=== PATIENT | male | born 1985 | race American Indian/Alaskan Native ===

== ENCOUNTER 2017-02-06 00:03 | Emergency (ER) | payer SELFPAY ==
--- NOTE | 2017-02-06 05:49 | Emergency Department Report ---
Upper Extremity - [facility] Chief Complaint: Extremity Injury, Upper Stated Complaint: R ARM INJURY Time Seen by Provider: 02/06/17 05:41 Upper Extremity: Right Forearm (bruising after blood draw ) Occurred When: 2 Days Mechanism: Other (blood draw at [facility] ) Symptoms: Yes Bruising/Ecchymosis, No Pain with Movement, No Deformity, No Limited Range of Movement, No Numbness, No Weakness, No Swelling, No Laceration or Abrasion ED Review of Systems ROS: Stated complaint: R ARM INJURY Other details as noted in HPI Constitutional: denies: chills, fever Eyes: denies: eye pain, eye discharge, vision change ENT: denies: ear pain, throat pain Respiratory: denies: cough, shortness of breath, wheezing Cardiovascular: denies: chest pain, palpitations Endocrine: no symptoms reported Gastrointestinal: denies: abdominal pain, nausea, diarrhea Genitourinary: denies: urgency, dysuria Musculoskeletal: denies: back pain, joint swelling, arthralgia Skin: other (injection site pain and bruising right anterior forearm) Neurological: denies: headache, weakness, paresthesias Psychiatric: denies: anxiety, depression Hematological/Lymphatic: denies: easy bleeding, easy bruising ED Past Medical Hx - Past Medical History Previous Medical History?: Yes Hx Asthma: Yes - Surgical History Past Surgical History?: No - Social History Smoking Status: Current Every Day Smoker Substance Use Type: None - Medications Home Medications: Home Medications Medication Instructions Recorded Confirmed Last Taken Type Famotidine [Pepcid] 40 mg PO QHS #14 tablet 02/15/16 Unknown Rx traMADol [Ultram 50 MG tab] 50 mg PO Q6HR PRN #10 tablet 02/15/16 Unknown Rx Naproxen 500 mg PO BID PRN #20 tablet 02/06/17 Unknown Rx Upper Extremity Exam - Exam General: Vital signs noted. No distress. Alert and acting appropriately. Head and Torso: No HEENT Abnormality, No Neck Tenderness, No Chest/Lungs Abnormality, No Abdominal Tenderness, No Back Tenderness Shoulder Exam: Yes Normal Range of Motion in Shoulder, No Shoulder Tenderness, No Clavicle Tenderness, No Shoulder Deformity, No AC Joint Tenderness Arm Exam: No Arm/Humerus Tenderness, No Arm Deformity Elbow: Yes Normal Range of Motion in Elbow, No Elbow Tenderness, No Elbow Deformity Forearm: Yes Forearm Tenderness, Yes Pain with Supination, No Forearm Deformity , No Pain with Pronation Wrist: Yes Normal ROM in Wrist, No Wrist Tenderness, No Wrist Deformity, No Snuffbox Tenderness, No Pain with Axial Thumb Compression Hand: Yes Normal ROM in Digit(s), No Hand Tenderness, No Hand Deformity, No Digit Tenderness, No Digit(s) Deformity CMS Exam: Yes Normal Distal Pulses, Yes Normal Capillary Refill, Yes Normal Distal Sensation, No Broken Skin (pain irritation to veinipuncture site right ac ) ED Course Vital Signs 02/06/17 02/06/17 02/06/17 00:58 01:01 01:36 Temperature 98.7 F 98.7 F 98.7 F Pulse Rate 80 80 Respiratory 16 16 18 Rate Blood Pressure 115/70 115/70 Blood Pressure 115/70 [Right] O2 Sat by Pulse 100 100 Oximetry ED Medical Decision Making - Medical Decision Making pt is a 31 y/o aam who presents for right forearm pain and bruising after donating plasma 2 days ago there is mild ecchymosis and bruising to veinipuncture site no phlebitis no hematoma no decreased range of motion , radial palpable +2 bilat , 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 in 2 days for site check pt given strictions to return to emergency immediately if symptoms worsen, pt verbalized agreement and understanding of same. Critical care attestation.: If time is entered above; I have spent that time in minutes in the direct care of this critically ill patient, excluding procedure time. ED Disposition Clinical Impression: Contusion of right arm Qualifiers: Encounter type: initial encounter Qualified Code(s): S40.021A - Contusion of right upper arm, initial encounter Disposition: TO HOME OR SELFCARE Is pt being admited?: No Does the pt Need Aspirin: No Condition: Good Instructions: Contusion in Adults (ED) Additional Instructions: follow up with [facility] [phone] call today to setup appointment Prescriptions: Naproxen 500 mg PO BID PRN #20 tablet PRN Reason: Pain Referrals: PRIMARY CARE, [Primary Care Provider] - 3-5 Days Forms: Work/School Release Form(ED) Time of Disposition: 05:51
[2017-02-06 06:06] VITALS: BP 113/71
== END 2017-02-06 05:55 | disposition home or self-care (01) ==
LOC: ED 00:03
DX: S40.021A Contusion of right upper arm, initial encounter (principal); J45.909 Unspecified asthma, uncomplicated; F17.200 Nicotine dependence, unspecified, uncomplicated; X58.XXXA Exposure to other specified factors, initial encounter; Y93.9 Activity, unspecified; Y99.9 Unspecified external cause status; Y92.89 Other specified places as the place of occurrence of the external cause
CPT/HCPCS: 99282

== ENCOUNTER 2017-03-23 01:24 | Emergency (ER) | payer SELFPAY | END 2017-03-23 02:28 | disposition left against medical advice (07) | LOC: ED 01:24 | DX: Z53.21 Procedure and treatment not carried out due to patient leaving prior to being seen by health care provider (principal) ==

== ENCOUNTER 2017-04-07 21:41 | Emergency (ER) | payer SELFPAY ==
[2017-04-07 22:02] VITALS: BP 123/76
--- NOTE | 2017-04-07 22:22 | Emergency Department Report ---
Chief Complaint: Skin Rash Stated Complaint: POSSIBLE STD Time Seen by Provider: 04/07/17 22:08 - HPI History of Present Illness: 32-year-old -[place] male comes in for him might have an STD. Patient reports that he had bumps near the pubic hairline for 3 days. He does report to having unprotected sex denies any penile discharge. - ROS Review of Systems: Denies any penile discharge no pain. - Exam Vital Signs: Vital Signs 04/07/17 21:51 Temperature 98.4 F Pulse Rate 87 Respiratory 18 Rate Blood Pressure 123/76 O2 Sat by Pulse 97 Oximetry Physical Exam: Patient's alert and oriented 3 nontoxic no acute distress. MSE screening note: Focused history and physical exam performed. Due to findings the following was ordered: Discussed with patient that this is not an acute nonemergent issue recommend for him to follow-up with the health department for testing. ED Disposition for MSE Condition: Stable Referrals: SONIA AGUILLON MD [Primary Care Provider] - 3-5 Days
== END 2017-04-07 22:15 | disposition left against medical advice (07) ==
LOC: ED 21:41
DX: A64 Unspecified sexually transmitted disease (principal); Z53.21 Procedure and treatment not carried out due to patient leaving prior to being seen by health care provider

== ENCOUNTER 2019-06-04 22:03 | Emergency (ER) | payer SELFPAY ==
[2019-06-04 22:14] VITALS: BP 127/86
--- NOTE | 2019-06-04 22:23 | Emergency Department Report ---
Blank Doc - Documentation Documentation: 34-year-old male that presents with right groin abscess. This initial assessment/diagnostic orders/clinical plan/treatment(s) is/are subject to change based on patient's health status, clinical progression and re- assessment by fellow clinical providers in the ED. Further treatment and workup at subsequent clinical providers discretion. Patient/guardians urged not to elope from the ED as their condition may be serious if not clinically assessed and managed. Initial orders include: 1- Patient sent to [facility] for further evaluation and treatment
--- NOTE | 2019-06-05 00:33 | Emergency Department Report ---
Chief Complaint: Skin Rash Stated Complaint: GROIN RASH Time Seen by Provider: 06/04/19 22:22 - HPI History of Present Illness: Patient is a 34-year-old male who presents the emergency room with complaints of a "hair bump:" that began a week ago. He states initially it was increasing in size but he popped it and had a little small amount of drainage and has been decreasing in size since then. he states he no longer has any drainage. He states that he shaved with a razor and then noticed the bump shortly after. He denies any drainage, fever, pain, swelling, any other symptoms. He denies any past medical history. He denies any allergies to medications. 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 May clean with alcohol once a day. Do not shave until all bumps have resolved. If you do shave please use a new razor. Follow-up with a primary care doctor in the next 3 to 5 days. Return to the emergency room for any new or worsening symptoms. - Exam Vital Signs: Vital Signs 06/04/19 22:13 Temperature 98.3 F Pulse Rate 109 H Respiratory 18 Rate Blood Pressure 127/86 O2 Sat by Pulse 98 Oximetry MSE screening note: Focused history and physical exam performed. ED Disposition for MSE Clinical Impression: Folliculitis Disposition: Z- MED SCREENING EXAM-LEFT Is pt being admited?: No Does the pt Need Aspirin: No Condition: Stable Instructions: Folliculitis (ED) Additional Instructions: Please use warm compresses 2-3 times a day. May clean with alcohol once a day. Do not shave until all bumps have resolved. If you do shave please use a new razor. Follow-up with a primary care doctor in the next 3 to 5 days. Return to the emergency room for any new or worsening symptoms. Referrals: SHIRIN FRANK MD [Staff Physician] - 3-5 Days [facility] [Outside] - 3-5 Days [facility] [Outside] - 3-5 Days Time of Disposition: 00:32 Print Language: KOREAN
== END 2019-06-05 00:50 | disposition left against medical advice (07) ==
LOC: ED 22:03
DX: L73.9 Follicular disorder, unspecified (principal)
CPT/HCPCS: 99282

== ENCOUNTER 2019-06-11 01:30 | Emergency (ER) | payer SELFPAY ==
[2019-06-11 02:36] VITALS: BP 113/73
--- NOTE | 2019-06-11 02:56 | Emergency Department Report ---
Chief Complaint: Urogenital-Male Stated Complaint: STD Time Seen by Provider: 06/11/19 02:45 - HPI History of Present Illness: 34-year-old male presents to the emergency room wanting to be tested for STDs. - Exam Vital Signs: Vital Signs 06/11/19 01:59 Temperature 98.0 F Pulse Rate 96 H Respiratory 20 Rate Blood Pressure 113/73 O2 Sat by Pulse 98 Oximetry Physical Exam: Alert and oriented x3 no acute distress Patient is amatory without difficulty MSE screening note: Focused history and physical exam performed. Due to findings the following was ordered: 34-year-old male presents to the emergency room comes to the emergency room wants to be tested for STD. Discussed with patient that this is best evaluated by the health department or primary care provider. ED Disposition for MSE Disposition: MED SCREENING EXAM-LEFT Is pt being admited?: No Does the pt Need Aspirin: No Condition: Stable Additional Instructions: Discussed with patient that this is best evaluated by the health department or primary care provider. Referrals: PRIMARY CARE, [Primary Care Provider] - 3-5 Days [facility] [Outside] - 3-5 Days [facility] [Outside] - 3-5 Days [facility] [Outside] - 3-[address] [facility] [Outside] - 3-5 Days
== END 2019-06-11 02:52 | disposition left against medical advice (07) ==
LOC: ED 01:30
DX: Z20.2 Contact with and (suspected) exposure to infections with a predominantly sexual mode of transmission (principal)

== ENCOUNTER 2019-06-25 22:16 | Emergency (ER) | payer OTHER ==
[2019-06-25 22:29] VITALS: BP 111/69
== END 2019-06-26 00:10 | disposition left against medical advice (07) ==
LOC: ED 22:16
DX: M54.2 Cervicalgia (principal); Z53.21 Procedure and treatment not carried out due to patient leaving prior to being seen by health care provider

== ENCOUNTER 2019-06-26 23:47 | Emergency (ER) | payer OTHER ==
[2019-06-26 23:52] VITALS: BP 112/79
[2019-06-27] MEDS ORDERED: HYDROcodone/ACETAMINOPHEN 5-325 MG TAB PO ONE (00:39)
[2019-06-27] MEDS ORDERED: IBUPROFEN 800 MG TAB PO ONE (00:39)
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
== END 2019-06-27 01:53 | disposition home or self-care (01) ==
LOC: ED 23:47
DX: S16.1XXA Strain of muscle, fascia and tendon at neck level, initial encounter (principal); V89.2XXA Person injured in unspecified motor-vehicle accident, traffic, initial encounter; Y93.89 Activity, other specified; Y92.410 Unspecified street and highway as the place of occurrence of the external cause; Y99.8 Other external cause status
CPT/HCPCS: 72125